=== PATIENT | male | born 1990 | race Caucasian/White ===

== ENCOUNTER 2020-11-08 16:44 | Emergency (ER) | payer OTHER ==
[~2020-11-08] VITALS: Ht 177.8 cm; Wt 65.9 kg
[2020-11-08 17:01] VITALS: BP 139/83
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
== END 2020-11-08 18:23 | disposition home or self-care (01) ==
LOC: ER 16:45
DX: Z02.89 Encounter for other administrative examinations (principal); F12.90 Cannabis use, unspecified, uncomplicated; Z72.89 Other problems related to lifestyle; Z88.0 Allergy status to penicillin; Z88.1 Allergy status to other antibiotic agents
CPT/HCPCS: 99281

== ENCOUNTER 2020-11-21 13:25 | Emergency (ER) | payer MEDICAID ==
[2020-11-21 13:36] VITALS: BP 131/85
[2020-11-21] MEDS ORDERED: naproxen 500mg tablet PO ONE (15:00)
[2020-11-21] MEDS ORDERED: NAPR-56 PO (15:07)
--- NOTE | 2020-11-21 15:40 | NUR ---
PATIENT DEPARTED BEFORE RECEIVING DC INSTRUCTIONS OR MEDICATION FOR PAIN. UNABLE TO ASSESS VS BEFORE DEPARTURE.
== END 2020-11-21 15:41 | disposition home or self-care (01) ==
LOC: ER 13:25
DX: S06.0X1A Concussion with loss of consciousness of 30 minutes or less, initial encounter (principal); S40.022A Contusion of left upper arm, initial encounter; F17.200 Nicotine dependence, unspecified, uncomplicated; R07.81 Pleurodynia; H92.02 Otalgia, left ear; F12.90 Cannabis use, unspecified, uncomplicated; Z72.89 Other problems related to lifestyle; Z88.8 Allergy status to other drugs, medicaments and biological substances; Z88.0 Allergy status to penicillin; Z79.899 Other long term (current) drug therapy; V69.49XA Driver of heavy transport vehicle injured in collision with other motor vehicles in traffic accident, initial encounter; Y93.89 Activity, other specified; Y92.488 Other paved roadways as the place of occurrence of the external cause; Y99.8 Other external cause status
CPT/HCPCS: 70450; 72125; 73080; 99284; 99285

== ENCOUNTER 2021-01-20 02:56 | Emergency (ER) | payer MEDICAID ==
[~2021-01-20] VITALS: Ht 177.8 cm; Wt 65.0 kg
[2021-01-20 03:03] VITALS: BP 134/86
== END 2021-01-20 07:00 | disposition left against medical advice (07) ==
LOC: ER 02:57
DX: R10.33 Periumbilical pain (principal); Z53.21 Procedure and treatment not carried out due to patient leaving prior to being seen by health care provider

== ENCOUNTER 2021-01-20 22:11 | Emergency (ER) | payer MEDICAID ==
[~2021-01-20] VITALS: Ht 177.8 cm; Wt 65.9 kg
[2021-01-21] MEDS ORDERED: LORazepam 1 MG tablet PO ONE (03:50)
[2021-01-21 04:00] VITALS: BP 132/94
== END 2021-01-21 04:03 | disposition home or self-care (01) ==
LOC: ER 22:11
DX: F41.9 Anxiety disorder, unspecified (principal); F12.90 Cannabis use, unspecified, uncomplicated; Z72.89 Other problems related to lifestyle; Z88.0 Allergy status to penicillin; Z88.1 Allergy status to other antibiotic agents
CPT/HCPCS: 99283

== ENCOUNTER → 2021-01-26 | Emergency (ER) | payer MEDICAID ==
[~2021-01-26] VITALS: Ht 177.8 cm; Wt 65.0 kg
[2021-01-26 00:49] VITALS: BP 128/85
== END | disposition home or self-care (01) ==
LOC: ER 00:48
DX: F41.9 Anxiety disorder, unspecified (principal); F12.90 Cannabis use, unspecified, uncomplicated; F11.10 Opioid abuse, uncomplicated; Z00.00 Encounter for general adult medical examination without abnormal findings; Z72.89 Other problems related to lifestyle; Z88.0 Allergy status to penicillin; Z88.8 Allergy status to other drugs, medicaments and biological substances; Z79.899 Other long term (current) drug therapy
CPT/HCPCS: 99281

== ENCOUNTER 2021-01-27 23:35 | Emergency (ER) | payer MEDICAID, OTHER ==
[~2021-01-27] VITALS: Ht 177.8 cm; Wt 63.6 kg
[2021-01-28 00:13] VITALS: BP 120/83
== END 2021-01-28 04:55 | disposition left against medical advice (07) ==
LOC: ER 23:36
DX: T67.5XXA Heat exhaustion, unspecified, initial encounter (principal); Z53.21 Procedure and treatment not carried out due to patient leaving prior to being seen by health care provider; X30.XXXA Exposure to excessive natural heat, initial encounter; Y93.89 Activity, other specified; Y92.89 Other specified places as the place of occurrence of the external cause; Y99.8 Other external cause status